=== PATIENT | male | born 1995 ===

== ENCOUNTER 2024-09-16 07:10 | Emergency (ER) | payer MEDICAID ==
[~2024-09-16] VITALS: Ht 182.9 cm; Wt 77.2 kg
[2024-09-16 07:14] VITALS: O2SAT 98
[2024-09-16 07:57] LABS: HEMATOCRIT. 48.5 % (42.0-52.0); HEMOGLOBIN. 16.4 g/dL (14.0-18.0); MEAN CORPUSCULAR HEMOGLOBIN 27.5 pg (28.0-32.0); MEAN CORPUSCULAR HGB CONC 33.9 g/dL (31.0-37.0); MEAN CORPUSCULAR VOLUME 81.2 fL (80.0-94.0); MEAN PLATELET VOLUME 8.5 fl (7.4-10.4); PLATELET 305 x1000/uL (130-400); RED BLOOD CELL COUNT 5.97 mill/uL (4.7-6.1); RED CELL DISTRIBUTION WIDTH 13.1 % (11.6-14.6); WHITE BLOOD COUNT 6.1 x1000/uL (4.5-11.0)
[2024-09-16 07:59] LABS: DIFFERENTIAL COMMENT 1
[2024-09-16 08:29] LABS: POTASSIUM 4.3 mEq/L (3.5-5.1)
[2024-09-16 08:30] LABS: CALCIUM 9.9 mg/dL (8.7-10.4)
[2024-09-16 08:35] LABS: CREATININE 1.7 mg/dL (0.6-1.3)
[2024-09-16 09:42] LABS: CLARITY URINE CLOUDY (CLEAR); COLOR URINE DARK YELLOW (YELLOW); GLUCOSE URINE NEGATIVE (NEGATIVE); KETONES URINE TRACE (NEGATIVE); LEUKOCYTE ESTERASE URINE NEGATIVE (NEGATIVE); NITRITE URINE NEGATIVE (NEGATIVE); OCCULT BLOOD URINE NEGATIVE (NEGATIVE); PROTEIN URINE 3+ (NEGATIVE); SPECIFIC GRAVITY URINE 1.035 (1.005-1.030)
[2024-09-16] MEDS: ONDANSETRON HCL 4MG/2ML INJ IV ONE (09:53)
[2024-09-16] MEDS: KETOROLAC 15MG/ML VIAL IV NR (10:03)
[2024-09-16] MEDS ORDERED: ONDA4TAB50 MT (10:04)
[2024-09-16] MEDS: SODIUM CHLORIDE 0.9% 1,000 ML IV ONE (10:14)
[2024-09-16 10:18] LABS: SQUAMOUS EPITHELIAL CELL URINE RARE /lpf (RARE/1+)
[2024-09-16 10:19] LABS: BACTERIA URINE 2+; MUCUS URINE TRACE /lpf (NONE/TRACE); RBC URINE 0-2 /hpf (0-2); WBC URINE 0-2 /hpf (0-2)
[2024-09-16 11:27] VITALS: BP 122/70; PULSE 64; RESP 14; TEMP 37; O2SAT 98
[2024-09-16 13:54] LABS: PLATELET ESTIMATE NORMAL
== END 2024-09-16 11:24 | disposition home or self-care (01) ==
LOC: ER 07:10
DX: K52.9 Noninfective gastroenteritis and colitis, unspecified (principal); N17.9 Acute kidney failure, unspecified; Z79.899 Other long term (current) drug therapy
CPT/HCPCS: 80048; 81003; 83690; 85025; 36415; 74176; 96361; 96374; 96375; 99285; J1885; J2405; J7030; Z7610 ×2